=== PATIENT | male | born 1990 | race Hispanic/Latino ===

== ENCOUNTER 2018-05-19 11:23 | Emergency (ER) | payer OTHER ==
--- NOTE | 2018-05-19 12:38 | RAD ---
PROCEDURE: Right Hand Radiographs. HISTORY: trauma COMPARISON: None. FINDINGS: BONES: There is a nondisplaced linear fracture running in the longitudinal direction in the 2nd middle phalanx. This does not extend to the articular surface JOINTS: Normal. No osteoarthritic changes. SOFT TISSUES: Normal. OTHER FINDINGS: None. IMPRESSION: There is a nondisplaced linear fracture running in the longitudinal direction in the 2nd middle phalanx. This does not extend to the articular surface
--- NOTE | 2018-05-19 12:51 | ED PDOC ---
Arrival/HPI - General Historian: Patient - History of Present Illness Narrative History of Present Illness (Text): 05/19/18 13:01 27M no past medical history presents to the emergency department after finger trauma at work. Pt got his right index finger caught in a oseas, immediately turned the machine off and removed his finger. Pt said the bleeding stopped soon after applying gauze. Pt reports no loss of sensation, no acute changes in temperature and is still able to flex the finger at the DIP. Pt does not have a PMD but follows up at an urgent care. Time/Duration: Prior to Arrival Symptom Onset: Sudden Symptom Course: Unchanged Quality: Aching Severity Level: Moderate Context: Work <Ritesh Maguire - Last Filed: 05/19/18 12:47> <Hugo Rizo - Last Filed: 05/19/18 14:08> - General Chief Complaint: Upper Extremity Problem/Injury Time Seen by Provider: 05/19/18 11:38 Past Medical History - Provider Review Nursing Documentation Reviewed: Yes - Infectious Disease Hx of Infectious Diseases: None - Cardiac Hx Cardiac Disorders: No - Pulmonary Hx Respiratory Disorders: No - Renal Hx Renal Disorder: No - Psychiatric Hx Substance Use: No - Anesthesia Hx Anesthesia: No <Ritesh Maguire - Last Filed: 05/19/18 12:47> Family/Social History Family/Social History: Unknown Family HX Smoking Status: Unknown If Ever Smoked Hx Alcohol Use: No Hx Substance Use: No <Ritesh Maguire - Last Filed: 05/19/18 12:47> Allergies/Home Meds <Ritesh Maguire - Last Filed: 05/19/18 12:47> <Hugo Rizo - Last Filed: 05/19/18 14:08> Allergies/Adverse Reactions: Allergies No Known Allergies Allergy (Verified 05/19/18 11:36) Review of Systems - Physician Review All systems were reviewed & negative as marked: Yes - Review of Systems Constitutional: Normal Eyes: Normal ENT: Normal Cardiovascular: Normal Musculoskeletal: Arthralgias (R index DIP), Joint Swelling (R index DIP) Skin: Laceration (proximal to index nail) Neurological: absent: Headache, Dizziness Psychiatric: Normal <Ritesh Maguire - Last Filed: 05/19/18 12:47> Physical Exam Vital Signs Temp Pulse Resp BP Pulse Ox 05/19/18 11:23 98 F 82 18 138/74 99 Temperature: Afebrile Blood Pressure: Normal Pulse: Regular Respiratory Rate: Normal Appearance: Positive for: Well-Appearing, Non-Toxic Pain Distress: Moderate Mental Status: Positive for: Alert and Oriented X 3 - Systems Exam Head: Present: Atraumatic, Normocephalic Pupils: Present: PERRL Extroacular Muscles: Present: EOMI Conjunctiva: Present: Normal Mouth: Present: Moist Mucous Membranes Respiratory/Chest: Present: Clear to Auscultation. No: Respiratory Distress Cardiovascular: Present: Regular Rate and Rhythm, Normal S1, S2 Abdomen: Present: Tenderness Upper Extremity: Present: Edema (r index DIP), Normal ROM, NORMAL PULSES, Tenderness (r index DIP), Swelling (r index DIP), Neurovascularly Intact Neurological: Present: CN II-XII Intact Skin: Present: Laceration (r index DIP) Psychiatric: Present: Alert, Oriented x 3 <Ritesh Maguire - Last Filed: 05/19/18 12:47> Vital Signs Temp Pulse Resp BP Pulse Ox 05/19/18 11:23 98 F 82 18 138/74 99 <Hugo Rizo - Last Filed: 05/19/18 14:08> Medical Decision Making ED Course and Treatment: 05/19/18 13:09 X ray of R index shows hairline fracture of proximal interphalanges soft splint w/ rashel wrap dressing with joyce and betadine - RAD Interpretation Radiology Orders: 05/19/18 11:42 HAND RIGHT 2ND DIGIT (FINGER) [RAD] Stat <Ritesh Maguire - Last Filed: 05/19/18 12:47> ED Course and Treatment: Seen and examined with resident. 27 y/o M p/w finger injury. No separable edges on wound, small flap. Ortho follow up. - RAD Interpretation Radiology Orders: 05/19/18 11:42 HAND RIGHT 2ND DIGIT (FINGER) [RAD] Stat <Hugo Rizo - Last Filed: 05/19/18 14:08> Disposition/Present on Arrival - Present on Arrival Any Indicators Present on Arrival: No History of DVT/PE: No History of Uncontrolled Diabetes: No Urinary Catheter: No History of Decub. Ulcer: No History Surgical Site Infection Following: None - Disposition Have Diagnosis and Disposition been Completed?: Yes Disposition Time: 12:47 Patient Plan: Discharge <Ritesh Maguire - Last Filed: 05/19/18 12:47> <Hugo Rizo - Last Filed: 05/19/18 14:08> - Disposition Diagnosis: Fracture, finger, distal phalanx Disposition: HOME/ ROUTINE Condition: GOOD Discharge Instructions (ExitCare): Finger Fracture (DC) Additional Instructions: MAHENDRA DUNBAR, thank you for letting us take care of you today. Your provider was and you were treated for finger problem ( ). The emergency medical care you received today was directed at your acute symptoms. If you were prescribed any medication, please fill it and take as directed. It may take several days for your symptoms to resolve. Return to the Emergency Department if your symptoms worsen, do not improve, or if you have any other problems. Please contact your doctor or call one of the physicians/clinics you have been referred to that are listed on the Patient Visit Information form that is included in your discharge packet. Bring any paperwork you were given at discharge with you along with any medications you are taking to your follow up visit. Our treatment cannot replace ongoing medical care by a primary care provider outside of the emergency department. Thank you for allowing the [facility] team to be part of your care today. If you had an X-Ray or CT scan: A Radiologist will review the ED reading if any change in treatment is needed we will contact you. If you had a blood, urine, or wound culture: It will take several days for the results, if any change in treatment is needed we will contact you. If you had an STI test: It will take 48 hours for the results. Please call after 1 week if you have not heard back. Please follow up with your PMD for a follow up xray and assessment of the finger within 2 weeks, you may take over the counter ibuprofen 600mg every 8 hrs for pain control as prescribed. if symptoms persist of pain/ loss of sensation or abnormal color, please seek medical attention immediately. Prescriptions: RX: Ibuprofen [Motrin Tab] 600 mg PO Q8 #15 tab Referrals: Faith Pereira MD [Staff Provider] - Follow up with primary Forms: [employer] (E[place]ian), WORK NOTE
[2018-05-19 13:12] VITALS: BP 138/74; PULSE 82; RESP 18; TEMP 98; O2SAT 99
== END 2018-05-19 13:12 | disposition home or self-care (01) ==
LOC: ED 11:23
DX: S62.630A Displaced fracture of distal phalanx of right index finger, initial encounter for closed fracture (principal); W23.0XXA Caught, crushed, jammed, or pinched between moving objects, initial encounter; Y92.89 Other specified places as the place of occurrence of the external cause; Y99.0 Civilian activity done for income or pay